=== PATIENT | female | born 1995 | race Caucasian/White ===

== ENCOUNTER → 2016-09-13 | Outpatient (CLI) | payer BC ==
[~2016-09-13] MED LIST: ALBUAER2 INH; BCPILLS PO; CETI10TA84 PO; ETON1IMP2 INTRAD; HYDR-5688 PO; HYOS1TAB PO; LVS125 PO; PRT/20 PO; PRT/40 PO; RIZA1TAB11 PO; SERT-234 PO; SNG10 PO; TOPI50TA24 PO; TPM/50 PO; VNTHFA/IN INH; ZLF/100 PO
[2016-09-18 00:15] LABS: CHLAMYDIA TRACH RNA*** NOT DETECTED (NOT DETECTED); GC (NEIS GONORRHOEAE)RNA** NOT DETECTED (NOT DETECTED)
== END | disposition home or self-care (01) ==
LOC: C.LABSPEC 13:12
PROVIDERS: ATTEND Obstetrics & Gynecology
DX: Z11.3 Encounter for screening for infections with a predominantly sexual mode of transmission (principal); L29.8 Other pruritus

== ENCOUNTER → 2016-09-13 | Outpatient (CLI) | payer BC | END | disposition home or self-care (01) | LOC: C.LAB1850 10:26 | PROVIDERS: ATTEND Obstetrics & Gynecology | DX: Z11.3 Encounter for screening for infections with a predominantly sexual mode of transmission (principal) ==

== ENCOUNTER → 2016-09-18 | Outpatient (CLI) | payer BC ==
[2016-09-18 16:41] LABS: BASO % 0.3 %; BASO ABS # 0.04 K/uL (0-0.2); COMPLETE YES; EOS % 1.8 %; HEMATOCRIT 37.7 % (37-47); IG% 0.4 %; LYMPH % 33.3 %; LYMPH ABS # 4.01 K/uL (1.2-3.4); MEAN CELL VOLUME 85.5 fL (80-100); MEAN CORPUSCULAR HEMOGLOBIN 27.9 pg (25-34); MEAN CORPUSCULAR HGB CONC 32.6 g/dl (32-36); MEAN PLATELET VOLUME 11.3 fL (7.4-10.4); MONO % 7.2 %; PLATELET COUNT 346 K/uL (130-400); RED BLOOD COUNT 4.41 M/uL (4.2-5.4); WHITE BLOOD COUNT 12.04 K/uL (4.8-10.8)
[2016-09-18 16:50] LABS: BLOOD UREA NITROGEN 10 mg/dl (7-18); BUN/CREATININE RATIO 14.3 (10-20); CALCIUM 9.1 mg/dl (8.5-10.1); CARBON DIOXIDE 29 mmol/L (21-32); CHLORIDE 106 mmol/L (98-107); CREATININE 0.69 mg/dl (0.60-1.20); GLUCOSE 87 mg/dl (70-99); POTASSIUM 3.9 mmol/L (3.5-5.1); SODIUM 142 mmol/L (136-145)
== END | disposition home or self-care (01) ==
LOC: C.LAB1850 15:12
PROVIDERS: ATTEND Psychiatry & Neurology Psychiatry
DX: F33.0 Major depressive disorder, recurrent, mild (principal)

== ENCOUNTER 2016-09-19 14:49 | Emergency (ER) | payer BC ==
[~2016-09-19] VITALS: Ht 154.9 cm; Wt 157.3 kg
[~2016-09-19 14:49] MED LIST changes: -ETON1IMP2 INTRAD; -HYDR-5688 PO; -LVS125 PO; -PRT/40 PO; -RIZA1TAB11 PO; -SNG10 PO; -TPM/50 PO; -VNTHFA/IN INH; -ZLF/100 PO
[2016-09-19 14:57] VITALS: TEMP 37.5; Ht 154.9 cm; Wt 157.3 kg
[2016-09-19 16:45] LABS: URINE APPEARANCE CLEAR (CLEAR); URINE BILIRUBIN NEG (NEG); URINE COLOR YELLOW; URINE EPITHELIAL CELL AUTO >30 /lpf (0-5); URINE NITRITE NEG (NEG); URINE PH 7.5 (4.5-7.5); URINE SPECIFIC GRAVITY 1.023 (1.000-1.030); UROBILINOGEN NEG (NEG)
[2016-09-19 16:47] LABS: MANUAL MICROSCOPIC REQUIRED? NO; REVIEW REQ? NO
[2016-09-19] MEDS ORDERED: ZLF/100 PO (16:52)
[2016-09-19] MEDS ORDERED: PRT/40 PO (16:52)
[2016-09-19] MEDS ORDERED: TPM/50 PO (16:52)
[2016-09-19] MEDS ORDERED: LVS125 PO (16:52)
[2016-09-19] MEDS ORDERED: RIZA1TAB11 PO (16:52)
[2016-09-19] MEDS ORDERED: SNG10 PO (16:52)
[2016-09-19] MEDS ORDERED: VNTHFA/IN INH (16:53)
[2016-09-19] MEDS ORDERED: ETON1IMP2 INTRAD (16:54)
[2016-09-19] MEDS ORDERED: MoRPHine SULFATE 4 MG/ML 1 ML CARP\\VIAL IV STA (17:27)
[2016-09-19] MEDS ORDERED: ONDANSETRON INJ 2 MG/ML 2 ML VIAL IV STA (17:27)
[2016-09-19] MEDS ORDERED: SODIUM CHLORIDE 0.9% 1000ML 1,000 ML IV STA (17:27)
[2016-09-19 17:40] LABS: BASO % 0.2 %; BASO ABS # 0.02 K/uL (0-0.2); COMPLETE YES; EOS % 1.4 %; HEMATOCRIT 38.3 % (37-47); IG% 0.4 %; LYMPH % 30.9 %; LYMPH ABS # 4.02 K/uL (1.2-3.4); MEAN CELL VOLUME 83.4 fL (80-100); MEAN CORPUSCULAR HEMOGLOBIN 27.7 pg (25-34); MEAN CORPUSCULAR HGB CONC 33.2 g/dl (32-36); MEAN PLATELET VOLUME 11.1 fL (7.4-10.4); MONO % 7.8 %; NEUT % 59.3 %; PLATELET COUNT 365 K/uL (130-400); RED BLOOD COUNT 4.59 M/uL (4.2-5.4); WHITE BLOOD COUNT 13.01 K/uL (4.8-10.8)
[2016-09-19 17:47] LABS: PREG INTERNAL NEGATIVE QC NEG CLEAR BACKGROUND; PREG INTERNAL POSITIVE QC POS CONTROL LINE
[2016-09-19 17:47] LABS: ALT/SGPT 39 U/L (12-78); AST/SGOT 24 U/L (15-37); BLOOD UREA NITROGEN 12 mg/dl (7-18); BUN/CREATININE RATIO 15.8 (10-20); CALCIUM 9.3 mg/dl (8.5-10.1); CARBON DIOXIDE 27 mmol/L (21-32); CHLORIDE 107 mmol/L (98-107); CREATININE 0.73 mg/dl (0.60-1.20); GLUCOSE 82 mg/dl (70-99); SODIUM 143 mmol/L (136-145)
[2016-09-19 17:50] LABS: ALKALINE PHOSPHATASE 88 U/L (45-117)
--- NOTE | 2016-09-19 18:23 | DIAGNOSTIC IMAGING REPORT ---
CHEST 2 VIEWS ROUTINE CLINICAL HISTORY: Abdominal pain. COMPARISON STUDY: Chest radiograph August 07, 2011. FINDINGS: Lung lungs are mildly diminished. There is no pneumothorax or pleural effusion. Cardiac size is normal. Mediastinal contours are normal. There is no consolidation. IMPRESSION: 1. No acute findings. 2. Diminished lung volumes. Electronically signed by: Galindo Alcazar M.D. 09/19/2016 6:22 PM Dictated Date/Time: 09/19/2016 6:21 PM
--- NOTE | 2016-09-19 18:57 | DIAGNOSTIC IMAGING REPORT ---
ABDOMINAL ULTRASOUND, RIGHT UPPER QUADRANT HISTORY: Abdominal pain.. COMPARISON: Abdominal ultrasound May 28, 2013. FINDINGS: This exam is significantly compromised by suboptimal penetration. The pancreas was obscured. No abnormalities of the liver were identified. No gallstones were identified although sensitivity is diminished on this exam. There was no gallbladder wall thickening. No biliary ductal dilatation was present. There was no right hydronephrosis. IMPRESSION: 1. Study significantly compromised by suboptimal penetration. 2. No gallstones or biliary ductal dilatation identified. 3. Obscured pancreas. Electronically signed by: Galindo Alcazar M.D. 09/19/2016 6:55 PM Dictated Date/Time: 09/19/2016 6:54 PM
[2016-09-19] MEDS ORDERED: HYDR-5688 PO (19:48)
[2016-09-19] MEDS ORDERED: NORCO 5/325MG HOME PACK PO ONE (20:00)
[2016-09-19 20:03] VITALS: BP 109/83; PULSE 80; O2SAT 98
--- NOTE | 2016-09-20 19:14 | EMERGENCY ROOM VISIT NOTE ---
ED Visit Note First contact with patient: 16:48 Chief Complaint: Nausea and right-sided flank pain. History of Present Illness: Ms. Goodman is a 21 year-old white female who ambulates into the ED accompanied by her mother complaining of right upper quadrant abdominal pain, right flank pain and nausea . Historically patient reports history of gastroparesis. Patient reports a acute onset of right upper quadrant abdominal pain that started approximately 6 days ago. Since that time the pain has been constant. She reports the pain started over the anterior aspect of the abdomen but during the process and subsequently radiated around the abdomen into the axillary area and flank. She describes the pain as a sharp sensation. It did wax and wane in intensity but was constant for the 6 days. She currently rates her discomfort 6/10. Her pain is worse after eating. She has not identified any alleviating factors related to the pain. She is not taking medications for pain prior to arrival at the hospital. Associated with her pain she has been nauseated but has not vomited and she reports at the end of urination she has pressure sensation in the suprapubic. She also reports that she likely has been urinating slightly more than normal but has had no burning, hematemesis or sensations of incomplete voiding. She denies fevers, chills, sweats, skin eruptions, skin color changes, upper respiratory tract symptoms, shortness of breath, chest pain, lower abdominal pain, decreased appetite, diarrhea, constipation, vaginal bleeding, vaginal discharge. Review of Systems: As noted above in history of present illness. All body systems were reviewed and found to be negative as noted above. Past Medical History: As previously noted, asthma, bronchitis, unspecified kidney disease, malignant 100, status post unspecified elbow surgery and tonsillectomy. Current Medications: Medications Dose Route/Sig Max Daily Dose Days Date Category Dose Instructions Nexplanon (Etonogestrel) 68 Mg Imp 68 Mg INTRAD UD 09/19/16 Reported Ventolin Hfa (Albuterol) 200 Puffs/83043 Mcg Aers 2 Puffs INH QID PRN 09/19/16 Reported Rizatriptan Benzoate 10 Mg Tab 10 Mg PO UD PRN 09/19/16 Reported TAKE MD DIRECTS Hyoscyamine Sulfate 0.125 Mg Tab 0.125 Mg PO Q6H PRN 09/19/16 Reported Topamax (Topiramate) 50 Mg Tab 50 Mg PO QAM 09/19/16 Reported Pantoprazole Sodium (Pantoprazole) 40 Mg Tab 40 Mg PO QAM 09/19/16 Reported Montelukast Sodium (Montelukast Sod) 10 Mg Tab 10 Mg PO HS 09/19/16 Reported Sertraline HCl 100 Mg Tab 200 Mg PO QAM 09/19/16 Reported Topamax (Topiramate) 50 Mg Tab 100 Mg PO HS 07/05/15 Reported Allergies to Medications: Lorazepam, latex, cefprozil. Social History: Patient is currently a student; she feels safe in her home environment; she denies tobacco use and admits to alcohol use. Physical Examination: Vital Signs: Date Time Temp Pulse Resp B/P Pulse Ox O2 Delivery O2 Flow Rate FiO2 09/19/16 20:03 80 18 109/83 98 Room Air 09/19/16 19:11 86 16 98/61 95 09/19/16 18:22 90 09/19/16 17:54 87 20 122/65 97 Room Air 09/19/16 14:57 37.5 101 18 143/88 99 Room Air GENERAL: 21-year-old female in mild distress due to pain, nontoxic-appearing, afebrile and hemodynamically stable. NEUROLOGICAL: Awake, alert and oriented to person, place and time. Answering questions appropriately and following commands. Normal gait. Good hand eye coordination. SKIN: Warm, dry and pink. No soft tissue eruptions or trauma noted. HEENT: Atraumatic and normocephalic. PERRLA. Sclera white and conjunctiva pink. Oral cavity moist and pink. Pharynx is nonerythematous or edematous. Speech normal. No lymphadenopathy. Trachea midline. No jugular venous distention. BACK: No tenderness over the bony spine. No CVA tenderness. THORAX: Lungs sounds are clear to auscultation and equal bilaterally with symmetrical chest wall. No wheezing, rales or rhonchi. No crepitus, tenderness , subcutaneous air or deformities noted. HEART: Regular rate and rhythm. No gallops, rubs or murmurs are appreciated. ABDOMEN: Obese and soft with moderate tenderness in the epigastrium in the axillary border of the right upper quadrant. Decreased bowel sounds in all quadrants. No guarding, rigidity or organomegaly. EXTREMITIES: Moves all extremities well on command and with purpose. All distal neurovascular statuses are intact and equal bilaterally. ED Course: Patient is assessed as noted above. Laboratory Testing: Test 09/19/16 16:20 09/19/16 16:34 Range/Units Urine Color YELLOW Urine Appearance CLEAR CLEAR Urine pH 7.5 4.5-7.5 Urine Specific [place] 1.023 1.000-1.030 Urine Protein NEG NEG Urine Glucose (UA) NEG NEG Urine Ketones NEG NEG Urine Occult Blood NEG NEG Urine Nitrite NEG NEG Urine Bilirubin NEG NEG Urine Urobilinogen NEG NEG Urine Leukocyte Esterase SMALL NEG Urine WBC (Auto) 10-30 0-5 /hpf Urine RBC (Auto) 0-4 0-4 /hpf Urine Hyaline Casts (Auto) 1-5 0-5 /lpf Urine Epithelial Cells (Auto) >30 0-5 /lpf Urine Bacteria (Auto) 1+ NEG Urine Test NEG NEG White Blood Count 13.01 4.8-10.8 K/uL Red Blood Count 4.59 4.2-5.4 M/uL Hemoglobin 12.7 12.0-16.0 g/dL Hematocrit 38.3 37-47 % Mean Corpuscular Volume 83.4 80-100 fL Mean Corpuscular Hemoglobin 27.7 25-34 pg Mean Corpuscular Hemoglobin Concent 33.2 32-36 g/dl Platelet Count 365 130-400 K/uL Mean Platelet Volume 11.1 7.4-10.4 fL Neutrophils (%) (Auto) 59.3 % Lymphocytes (%) (Auto) 30.9 % Monocytes (%) (Auto) 7.8 % Eosinophils (%) (Auto) 1.4 % Basophils (%) (Auto) 0.2 % Neutrophils # (Auto) 7.73 1.4-6.5 K/uL Lymphocytes # (Auto) 4.02 1.2-3.4 K/uL Monocytes # (Auto) 1.01 0.11-0.59 K/uL Eosinophils # (Auto) 0.18 0-0.5 K/uL Basophils # (Auto) 0.02 0-0.2 K/uL RDW Standard Deviation 49.4 36.4-46.3 fL RDW Coefficient of Variation 16.3 11.5-14.5 % Immature Granulocyte % (Auto) 0.4 % Immature Granulocyte # (Auto) 0.05 0.00-0.02 K/uL Sodium Level 143 136-145 mmol/L Potassium Level 4.0 3.5-5.1 mmol/L Chloride Level 107 98-107 mmol/L Carbon Dioxide Level 27 21-32 mmol/L Anion Gap 9.0 3-11 mmol/L Blood Urea Nitrogen 12 7-18 mg/dl Creatinine 0.73 0.60-1.20 mg/dl Est Creatinine Clear Calc Drug Dose 174.8 ml/min Estimated GFR () 135.5 Estimated GFR (Non- 116.9 BUN/Creatinine Ratio 15.8 10-20 Random Glucose 82 70-99 mg/dl Calcium Level 9.3 8.5-10.1 mg/dl Total Bilirubin 0.2 0.2-1 mg/dl Direct Bilirubin < 0.1 0-0.2 mg/dl Aspartate Amino Transf (AST/SGOT) 24 15-37 U/L Alanine Aminotransferase (ALT/SGPT) 39 12-78 U/L Alkaline Phosphatase 88 45-117 U/L Total Protein 7.9 6.4-8.2 gm/dl Albumin 3.6 3.4-5.0 gm/dl Lipase 140 73-393 U/L Chest X-Rays: Were read by myself and the radiologist showing no acute infiltrates, effusions or pneumothorax. Normal heart silhouette and bony anatomy. Gallbladder Ultrasound: Was reviewed by myself and read by the radiologist and shows no abnormalities of the liver, no gallstones, gallbladder wall thickening or blurry ductal dilatation. No right-sided hydronephrosis. Radiologist does report that the study was suboptimal body habitus and the pancreas was mostly obscured. Patient was hydrated with normal saline and she received 4 mg of morphine IV for pain and 4 mg of Zofran IV. Patient was reassessed times during his stay in the emergency department. Patient's case was reviewed with Dr. Jason; we agreed on diagnostic approach, treatment, disposition and plan. Patient and mother were educated about jane's findings and instructed on her treatment plan; they verbalizes understanding and agreement with this plan. Clinical Impression: Right upper quadrant abdominal pain. Decision-Making: Initially my differential diagnosis I considered cholecystitis , hepatitis, pancreatitis, pyelonephritis, kidney stone, constipation, bowel obstruction and other causes. Disposition: Patient discharged home in stable condition; prior to departure she was reassessed and subjectively reported she was feeling better and rated her discomfort 3/10. Plan: Patient was placed on a sliding pain scale of acetaminophen and [place] as needed for pain. Patient was encouraged use bland diet for the next 48 hours and stay well hydrated. 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 Patient was encouraged return ED for worsening/uncontrolled pain, uncontrolled vomiting, bloody stool, fevers or any new/concerning symptoms.
== END 2016-09-19 20:00 | disposition home or self-care (01) ==
LOC: C.EDB 14:50 → C.EDD 20:00
DX: R10.11 Right upper quadrant pain (principal)

== ENCOUNTER → 2016-10-10 | Outpatient (CLI) | payer BC ==
[~2016-10-10] MED LIST changes: -ALBUAER2 INH; -BCPILLS PO; -CETI10TA84 PO; +ETON1IMP2 INTRAD; +HYDR-5688 PO; -HYOS1TAB PO; +LVS125 PO; -PRT/20 PO; +PRT/40 PO; +RIZA1TAB11 PO; -SERT-234 PO; +SNG10 PO; +TPM/50 PO; +VNTHFA/IN INH; +ZLF/100 PO
== END | disposition home or self-care (01) ==
LOC: C.LABSPEC 12:47
PROVIDERS: ATTEND Nurse Practitioner
DX: J02.9 Acute pharyngitis, unspecified (principal)